=== PATIENT | male | born 1970 | race Caucasian/White ===

== ENCOUNTER 2017-11-05 08:31 | Emergency (ER) | payer OTHER, SELFPAY ==
--- NOTE | 2017-11-05 09:15 | RAD ---
FOUR VIEWS OF THE LEFT KNEE: COMPARISON: None. HISTORY: Spider bite on with increased pain and swelling around the left knee. FINDINGS: Four views of the left knee show no evidence of acute fracture or dislocation. Moderate soft tissue swelling is seen. No knee effusion is seen. IMPRESSION: Soft tissue swelling without underlying osseous abnormality. POS: [facility]
[2017-11-05] MEDS ORDERED: cefTRIAXone\\ROCEPHIN 2 GM VIAL ONE (09:28)
== END 2017-11-05 11:10 | disposition home or self-care (01) ==
LOC: ERS 08:31
DX: L03.116 Cellulitis of left lower limb (principal)
CPT/HCPCS: 36415; 87040; 96365; 96367; J0696; J3370